=== PATIENT | male | born 1955 | race Caucasian/White ===

== ENCOUNTER 2020-03-19 15:23 | Outpatient (RCR) | payer OTHER, SELFPAY ==
[2020-02-24 10:57] VITALS: BMI 35.5
[2020-02-24] MEDS: cefTRIAXone 2,000 MG in sodium chloride 0.9% (plus) 50 ML 100 MG IV (11:23)
[2020-02-24 11:40] VITALS: BP 123/73; PULSE 63; RESP 18; TEMP 36.6; O2SAT 96
[2020-02-24 12:10] LABS: Basophils # 0.1 10^3/uL (0.0-0.1); Basophils % 0.6 %; Eosinophils # 0.3 10^3/uL (0.0-0.8); Eosinophils % 3.1 %; Hematocrit 37.1 % (42.0-52.0); Hemoglobin 12.2 g/dL (11.7-16.6); Lymphocytes # 2.1 10^3/uL (0.8-4.8); Lymphocytes % 25.1 %; Mean Corpuscular HGB Conc 32.9 g/dL (30.0-36.0); Mean Corpuscular Hemoglobin 31.2 pg (28.0-34.0); Mean Corpuscular Volume 94.9 fL (80-94); Monocytes # 0.5 10^3/uL (0.2-0.9); Monocytes % 5.7 %; Neutrophils # 5.24 10^3/uL (1.8-7.7); Neutrophils % 63.2 %; Nucleated Red Blood Cells % 0 %; Platelet Count 296 10^3/cmm (130-400); Red Blood Count 3.91 10^6/uL (4.1-5.3); Red Cell Distribution Width 13.1 % (12.1-15.1); White Blood Count 8.3 10^3/uL (4.0-10.0)
[2020-02-24 12:26] LABS: Alanine Aminotransferase 51 U/L (0-41); Albumin Level 3.8 g/dL (3.5-5.2); Alkaline Phosphatase 86 IU/L (40-130); Anion Gap 15.8 (5-19); Aspartate Amino Transferase 31 U/L (0-40); Blood Urea Nitrogen 23 mg/dL (8-23); Carbon Dioxide 24 mmol/L (22-29); Chloride 102 mmol/L (98-107); Globulin 2.7 g/dL (1.3-4.6); Glucose 133 mg/dL (65-115); Osmolality Calculated 292 mOsm/kg (285-295); Potassium 3.8 mmol/L (3.5-5.1); Sodium 138 mmol/L (136-145); Total Bilirubin 0.3 mg/dL (0.15-1.2); Total Protein 6.5 g/dL (6.6-8.7)
[2020-02-25 16:31] VITALS: BP 124/89; PULSE 78; RESP 18; TEMP 36.6; O2SAT 97
[2020-02-25] MEDS: cefTRIAXone 2,000 MG in sodium chloride 0.9% (plus) 50 ML 100 MG IV (16:33)
[2020-02-26] MEDS: cefTRIAXone 2,000 MG in sodium chloride 0.9% (plus) 50 ML 100 MG IV (16:20)
[2020-02-26 16:36] VITALS: BP 132/90; PULSE 71; RESP 18; TEMP 36.8; O2SAT 96
--- NOTE | 2020-02-26 16:37 | PC.NURSE ---
patient presented with PICC line dressing partially detached. It had been changed 02/22/20. This nurse changed dressing and end caps with infusion today due to compromised dressing.
[2020-02-27] MEDS: cefTRIAXone 2,000 MG in sodium chloride 0.9% (plus) 50 ML 100 MG IV (16:27)
[2020-02-27 16:44] VITALS: BP 124/78; PULSE 73; RESP 18; TEMP 36.6; O2SAT 96
[2020-02-28 16:24] VITALS: BP 120/78; PULSE 72; RESP 18; TEMP 36.6; O2SAT 98
[2020-02-28] MEDS: cefTRIAXone 2,000 MG in sodium chloride 0.9% (plus) 50 ML 100 MG IV (16:25)
[2020-02-29] MEDS: cefTRIAXone 2,000 MG in sodium chloride 0.9% (plus) 50 ML 100 MG IV (16:45)
[2020-02-29 17:08] VITALS: BP 126/86; PULSE 61; RESP 18; TEMP 36.6; O2SAT 97
[2020-03-02] MEDS: cefTRIAXone 2,000 MG in sodium chloride 0.9% (plus) 50 ML 50 MG IV (14:47)
[2020-03-02 14:49] VITALS: BP 120/77; PULSE 85; RESP 18; TEMP 36.8; O2SAT 98
[2020-03-03] MEDS: cefTRIAXone 2,000 MG in sodium chloride 0.9% (plus) 50 ML 100 MG IV (16:25)
[2020-03-03 16:46] LABS: Basophils % 0.7 %; Eosinophils # 0.2 10^3/uL (0.0-0.8); Eosinophils % 3.6 %; Hematocrit 36.8 % (42.0-52.0); Hemoglobin 12.5 g/dL (11.7-16.6); Lymphocytes # 1.9 10^3/uL (0.8-4.8); Lymphocytes % 32.1 %; Mean Corpuscular Hemoglobin 31.3 pg (28.0-34.0); Mean Platelet Volume 9.6 fL (7.4-10.4); Monocytes # 0.5 10^3/uL (0.2-0.9); Neutrophils # 3.25 10^3/uL (1.8-7.7); Neutrophils % 55.1 %; Nucleated Red Blood Cells % 0 %; Platelet Count 180 10^3/cmm (130-400); Red Cell Distribution Width 13.2 % (12.1-15.1); White Blood Count 5.9 10^3/uL (4.0-10.0)
[2020-03-03 17:01] VITALS: BP 132/90; PULSE 79; RESP 18; TEMP 36.8; O2SAT 95
[2020-03-03 17:24] LABS: Alanine Aminotransferase 39 U/L (0-41); Albumin Level 4.3 g/dL (3.5-5.2); Alkaline Phosphatase 113 IU/L (40-130); Anion Gap 16.9 (5-19); Aspartate Amino Transferase 24 U/L (0-40); Blood Urea Nitrogen 15 mg/dL (8-23); Calcium 9.7 mg/dL (8.5-10.5); Carbon Dioxide 21 mmol/L (22-29); Chloride 105 mmol/L (98-107); Globulin 2.7 g/dL (1.3-4.6); Glomerular Filtration Rate 97.3 mL/min (90-130); Glucose 96 mg/dL (65-115); Osmolality Calculated 289 mOsm/kg (285-295); Potassium 3.9 mmol/L (3.5-5.1); Sodium 139 mmol/L (136-145); Total Bilirubin 0.3 mg/dL (0.15-1.2)
[2020-03-04] MEDS: cefTRIAXone 2,000 MG in sodium chloride 0.9% (plus) 50 ML 100 MG IV (16:18)
[2020-03-04 16:33] VITALS: BP 120/76; PULSE 81; RESP 18; TEMP 36.7; O2SAT 96
[2020-03-05] MEDS: cefTRIAXone 2,000 MG in sodium chloride 0.9% (plus) 50 ML 100 MG IV (16:20)
[2020-03-05 17:12] VITALS: BP 117/87; PULSE 78; RESP 18; TEMP 36.5; O2SAT 97
[2020-03-06] MEDS: cefTRIAXone 2,000 MG in sodium chloride 0.9% (plus) 50 ML 100 MG IV (16:25)
[2020-03-06 16:45] VITALS: BP 137/85; PULSE 81; RESP 20; TEMP 36.7; O2SAT 97
[2020-03-07] MEDS: cefTRIAXone 2,000 MG in sodium chloride 0.9% (plus) 50 ML 100 MG IV (16:17)
[2020-03-07 16:27] VITALS: BP 112/82; PULSE 73; RESP 18; TEMP 36.3; O2SAT 98
[2020-03-08] MEDS: cefTRIAXone 2,000 MG in sodium chloride 0.9% (plus) 50 ML 100 MG IV (16:20)
[2020-03-08 16:25] VITALS: BP 126/88; PULSE 76; RESP 18; TEMP 36.3; O2SAT 95
[2020-03-09] MEDS: cefTRIAXone 2,000 MG in sodium chloride 0.9% (plus) 50 ML 100 MG IV (16:20)
[2020-03-09 16:23] VITALS: BP 142/103; PULSE 85; RESP 18; TEMP 36.5; O2SAT 97
[2020-03-10 16:33] VITALS: BP 125/88; PULSE 75; RESP 18; TEMP 36.5; O2SAT 97
--- NOTE | 2020-03-11 12:24 | XR_ITS ---
NOTE: Report was unsigned for reason: Order was edited. Original Signature date and time was: 03/11/20 1252 WS: [id number] Portable AP upright chest, 03/11/2020 Clinical Data: PICC line placement Comparison: None. Findings: The left PICC line and ends in the superior vena cava. No nodules, masses or effusions are seen. The heart is enlarged. The aortic arch and descending aorta show tortuosity The pulmonary vascularity is not increased. No pneumonia or pneumothorax is seen. There is an orthopedic anchor in the left humeral head. [facility] XR/XR chest 1V portable [id number] Impression: 1. Satisfactory position left PICC line. 2. Cardiomegaly and atherosclerosis.
[2020-03-11 13:08] LABS: Basophils # 0.1 10^3/uL (0.0-0.1); Basophils % 1.4 %; Eosinophils # 0.4 10^3/uL (0.0-0.8); Eosinophils % 8.8 %; Hematocrit 37.4 % (42.0-52.0); Hemoglobin 12.5 g/dL (11.7-16.6); Lymphocytes # 1.4 10^3/uL (0.8-4.8); Lymphocytes % 34.4 %; Mean Corpuscular HGB Conc 33.4 g/dL (30.0-36.0); Mean Corpuscular Hemoglobin 30.8 pg (28.0-34.0); Mean Corpuscular Volume 92.1 fL (80-94); Mean Platelet Volume 9.6 fL (7.4-10.4); Monocytes # 0.4 10^3/uL (0.2-0.9); Monocytes % 8.4 %; Neutrophils # 1.95 10^3/uL (1.8-7.7); Neutrophils % 46.5 %; Nucleated Red Blood Cells % 0 %; Platelet Count 153 10^3/cmm (130-400); Red Blood Count 4.06 10^6/uL (4.1-5.3); Red Cell Distribution Width 13.6 % (12.1-15.1); White Blood Count 4.2 10^3/uL (4.0-10.0)
[2020-03-11] MEDS: cefTRIAXone 2,000 MG in sodium chloride 0.9% (plus) 50 ML 100 MG IV (13:17)
[2020-03-11 13:32] LABS: Alanine Aminotransferase 32 U/L (0-41); Albumin Level 4.2 g/dL (3.5-5.2); Alkaline Phosphatase 142 IU/L (40-130); Anion Gap 14.1 (5-19); Aspartate Amino Transferase 23 U/L (0-40); Blood Urea Nitrogen 18 mg/dL (8-23); Calcium 9.3 mg/dL (8.5-10.5); Carbon Dioxide 24 mmol/L (22-29); Chloride 104 mmol/L (98-107); Globulin 2.6 g/dL (1.3-4.6); Glomerular Filtration Rate 97.3 mL/min (90-130); Glucose 87 mg/dL (65-115); Osmolality Calculated 287 mOsm/kg (285-295); Potassium 4.1 mmol/L (3.5-5.1); Sodium 138 mmol/L (136-145); Total Bilirubin 0.4 mg/dL (0.15-1.2); Total Protein 6.8 g/dL (6.6-8.7)
[2020-03-12 16:05] VITALS: BP 113/78; PULSE 78; RESP 18; TEMP 36.5; O2SAT 96
[2020-03-12] MEDS: cefTRIAXone 2,000 MG in sodium chloride 0.9% (plus) 50 ML 100 MG IV (16:15)
[2020-03-13 16:25] VITALS: BP 127/81; PULSE 76; RESP 18; TEMP 36.5; O2SAT 96
[2020-03-13] MEDS: cefTRIAXone 2,000 MG in sodium chloride 0.9% (plus) 50 ML 100 MG IV (16:25)
[2020-03-14] MEDS: cefTRIAXone 2,000 MG in sodium chloride 0.9% (plus) 50 ML 100 MG IV (16:26)
[2020-03-14 16:27] VITALS: BP 136/92; PULSE 85; RESP 18; TEMP 36.7; O2SAT 96
[2020-03-15] MEDS: cefTRIAXone 2,000 MG in sodium chloride 0.9% (plus) 50 ML 100 MG IV (16:10)
[2020-03-15 16:43] VITALS: BP 130/82; PULSE 80; RESP 18; TEMP 36.6; O2SAT 98
[2020-03-16 16:20] VITALS: BP 110/75; PULSE 109; RESP 18; TEMP 36.5; O2SAT 96
[2020-03-16] MEDS: cefTRIAXone 2,000 MG in sodium chloride 0.9% (plus) 50 ML 100 MG IV (16:21)
[2020-03-17] MEDS: cefTRIAXone 2,000 MG in sodium chloride 0.9% (plus) 50 ML 100 MG IV (16:25)
[2020-03-17 16:44] VITALS: BP 111/84; PULSE 78; RESP 18; TEMP 36.6; O2SAT 98
[2020-03-19] MEDS: cefTRIAXone 2,000 MG in sodium chloride 0.9% (plus) 50 ML 100 MG IV (16:00)
[2020-03-19 16:30] LABS: Basophils # 0.1 10^3/uL (0.0-0.1); Basophils % 1.1 %; Eosinophils # 0.4 10^3/uL (0.0-0.8); Eosinophils % 8.1 %; Hematocrit 38.6 % (42.0-52.0); Lymphocytes # 1.5 10^3/uL (0.8-4.8); Lymphocytes % 34.3 %; Mean Corpuscular HGB Conc 33.7 g/dL (30.0-36.0); Mean Corpuscular Hemoglobin 30.7 pg (28.0-34.0); Mean Corpuscular Volume 91.3 fL (80-94); Mean Platelet Volume 9.6 fL (7.4-10.4); Monocytes # 0.3 10^3/uL (0.2-0.9); Monocytes % 5.6 %; Neutrophils # 2.26 10^3/uL (1.8-7.7); Neutrophils % 50.7 %; Nucleated Red Blood Cells % 0 %; Platelet Count 182 10^3/cmm (130-400); Red Blood Count 4.23 10^6/uL (4.1-5.3); Red Cell Distribution Width 13.6 % (12.1-15.1); White Blood Count 4.5 10^3/uL (4.0-10.0)
[2020-03-19 16:43] VITALS: BP 102/72; PULSE 87; RESP 18; TEMP 36.6; O2SAT 96
[2020-03-19 16:48] LABS: Alanine Aminotransferase 35 U/L (0-41); Albumin Level 4.3 g/dL (3.5-5.2); Alkaline Phosphatase 145 IU/L (40-130); Anion Gap 15.5 (5-19); Aspartate Amino Transferase 22 U/L (0-40); Blood Urea Nitrogen 20 mg/dL (8-23); C Reactive Protein 4.6 mg/L (0.0-4.9); Calcium 9.5 mg/dL (8.5-10.5); Carbon Dioxide 22 mmol/L (22-29); Chloride 103 mmol/L (98-107); Globulin 2.8 g/dL (1.3-4.6); Glomerular Filtration Rate 97.3 mL/min (90-130); Glucose 121 mg/dL (65-115); Osmolality Calculated 288 mOsm/kg (285-295); Potassium 3.5 mmol/L (3.5-5.1); Sodium 137 mmol/L (136-145); Total Bilirubin 0.2 mg/dL (0.15-1.2); Total Protein 7.1 g/dL (6.6-8.7)
[2020-03-20 16:43] VITALS: BP 146/87; PULSE 78; RESP 18; TEMP 37; O2SAT 97
[2020-03-20] MEDS: cefTRIAXone 2,000 MG in sodium chloride 0.9% (plus) 50 ML 100 MG IV (16:43)
== END 2020-03-20 23:59 | disposition home or self-care (01) ==
LOC: OPS 15:23
PROVIDERS: PCP Family Medicine; Visit Provider Internal Medicine Infectious Disease
DX: T84.54XA Infection and inflammatory reaction due to internal left knee prosthesis, initial encounter (principal); Y83.8 Other surgical procedures as the cause of abnormal reaction of the patient, or of later complication, without mention of misadventure at the time of the procedure
CPT/HCPCS: 36415; 36569; 36592; 71045; 80053; 85025; 86140; 86141; 87070; 87075; 87205; 96365; J0696

== ENCOUNTER 2020-04-02 08:05 | Outpatient (RCR) | payer OTHER, SELFPAY ==
[2020-03-21] MEDS: cefTRIAXone 2,000 MG in sodium chloride 0.9% (plus) 50 ML 100 MG IV (16:10)
[2020-03-21 16:27] VITALS: BP 123/77; PULSE 69; RESP 18; TEMP 36.8; O2SAT 98; BMI 35.5
[2020-03-22 16:15] VITALS: BP 118/81; PULSE 75; RESP 18; TEMP 36.7; O2SAT 96
[2020-03-22] MEDS: cefTRIAXone 2,000 MG in sodium chloride 0.9% (plus) 50 ML 100 MG IV (16:20)
[2020-03-23] MEDS: cefTRIAXone 2,000 MG in sodium chloride 0.9% (plus) 50 ML 100 MG IV (16:15)
[2020-03-23 17:22] VITALS: BP 122/81; PULSE 84; RESP 18; TEMP 36.6; O2SAT 96
[2020-03-24] MEDS: cefTRIAXone 2,000 MG in sodium chloride 0.9% (plus) 50 ML 100 MG IV (16:04)
[2020-03-24 16:11] VITALS: BP 147/102; PULSE 85; RESP 18; TEMP 37.1; O2SAT 96
[2020-03-25] MEDS: cefTRIAXone 2,000 MG in sodium chloride 0.9% (plus) 50 ML 100 MG IV (16:07)
[2020-03-25 16:14] VITALS: BP 105/69; PULSE 74; RESP 18; TEMP 36.5; O2SAT 95
[2020-03-26 12:10] VITALS: BP 121/86; PULSE 71; RESP 18; TEMP 36.6; O2SAT 96
[2020-03-26] MEDS: cefTRIAXone 2,000 MG in sodium chloride 0.9% (plus) 50 ML 100 MG IV (12:10)
[2020-03-27] MEDS: cefTRIAXone 2,000 MG in sodium chloride 0.9% (plus) 50 ML 100 MG IV (08:17)
[2020-03-27 08:18] VITALS: BP 133/91; PULSE 55; RESP 18; TEMP 36.6; O2SAT 95
[2020-03-28] MEDS: cefTRIAXone 2,000 MG in sodium chloride 0.9% (plus) 50 ML 100 MG IV (08:12)
[2020-03-28 08:31] VITALS: BP 133/87; PULSE 64; RESP 18; TEMP 36.2; O2SAT 97
[2020-03-29] MEDS: cefTRIAXone 2,000 MG in sodium chloride 0.9% (plus) 50 ML 100 MG IV (08:15)
[2020-03-29 08:17] VITALS: BP 122/81; PULSE 66; RESP 18; TEMP 36.4; O2SAT 96
[2020-03-30 08:11] VITALS: BP 113/80; PULSE 63; RESP 18; TEMP 36.8; O2SAT 95
[2020-03-30] MEDS: cefTRIAXone 2,000 MG in sodium chloride 0.9% (plus) 50 ML 100 MG IV (08:11)
[2020-03-31] MEDS: cefTRIAXone 2,000 MG in sodium chloride 0.9% (plus) 50 ML 100 MG IV (08:15)
[2020-03-31 08:20] VITALS: BP 123/80; PULSE 67; RESP 18; TEMP 36.6; O2SAT 97
[2020-03-31 08:35] LABS: Basophils % 1.1 %; Eosinophils # 0.2 10^3/uL (0.0-0.8); Eosinophils % 4.5 %; Hematocrit 39.9 % (42.0-52.0); Hemoglobin 13.3 g/dL (11.7-16.6); Lymphocytes # 1.2 10^3/uL (0.8-4.8); Lymphocytes % 31.6 %; Mean Corpuscular HGB Conc 33.3 g/dL (30.0-36.0); Mean Corpuscular Hemoglobin 30.6 pg (28.0-34.0); Mean Corpuscular Volume 91.7 fL (80-94); Mean Platelet Volume 9.3 fL (7.4-10.4); Monocytes # 0.4 10^3/uL (0.2-0.9); Monocytes % 9.8 %; Neutrophils # 1.97 10^3/uL (1.8-7.7); Neutrophils % 52.5 %; Nucleated Red Blood Cells % 0 %; Platelet Count 173 10^3/cmm (130-400); Red Blood Count 4.35 10^6/uL (4.1-5.3); Red Cell Distribution Width 13.6 % (12.1-15.1); White Blood Count 3.8 10^3/uL (4.0-10.0)
[2020-03-31 08:55] LABS: Alanine Aminotransferase 41 U/L (0-41); Albumin Level 4.2 g/dL (3.5-5.2); Alkaline Phosphatase 129 IU/L (40-130); Anion Gap 15.6 (5-19); Aspartate Amino Transferase 27 U/L (0-40); Blood Urea Nitrogen 15 mg/dL (8-23); C Reactive Protein 2.6 mg/L (0.0-4.9); Calcium 8.9 mg/dL (8.5-10.5); Carbon Dioxide 22 mmol/L (22-29); Chloride 108 mmol/L (98-107); Globulin 2.4 g/dL (1.3-4.6); Glomerular Filtration Rate 97.3 mL/min (90-130); Glucose 138 mg/dL (65-115); Osmolality Calculated 297 mOsm/kg (285-295); Potassium 3.6 mmol/L (3.5-5.1); Sodium 142 mmol/L (136-145); Total Bilirubin 0.2 mg/dL (0.15-1.2); Total Protein 6.6 g/dL (6.6-8.7)
[2020-04-01 08:08] VITALS: BP 117/91; PULSE 68; RESP 18; TEMP 36.1; O2SAT 94
[2020-04-01] MEDS: cefTRIAXone 2,000 MG in sodium chloride 0.9% (plus) 50 ML 100 MG IV (08:08)
[2020-04-02] MEDS: cefTRIAXone 2,000 MG in sodium chloride 0.9% (plus) 50 ML 100 MG IV (08:21)
[2020-04-02 08:22] VITALS: BP 128/97; PULSE 65; RESP 18; TEMP 36.7; O2SAT 98
[2020-04-03] MEDS: cefTRIAXone 2,000 MG in sodium chloride 0.9% (plus) 50 ML 100 MG IV (08:00)
[2020-04-03 08:58] VITALS: BP 131/90; PULSE 65; RESP 18; TEMP 36.1; O2SAT 97
== END 2020-04-19 23:59 | disposition home or self-care (01) ==
LOC: OPS 08:05
PROVIDERS: PCP Family Medicine; Visit Provider Internal Medicine Infectious Disease
DX: T84.54XA Infection and inflammatory reaction due to internal left knee prosthesis, initial encounter (principal); Y83.8 Other surgical procedures as the cause of abnormal reaction of the patient, or of later complication, without mention of misadventure at the time of the procedure
CPT/HCPCS: 15852; 36415; 80053; 85025; 86140; 96365; J0696

== ENCOUNTER → 2022-09-19 17:11 | Outpatient (BNVA) | payer MEDICARE, SELFPAY | PROVIDERS: PCP Family Medicine; Visit Provider Nurse Practitioner Family | DX: Z12.5 Encounter for screening for malignant neoplasm of prostate (principal); I10 Essential (primary) hypertension | CPT/HCPCS: 80053; 80061; 85025; G0103 ==

== ENCOUNTER → 2023-12-17 09:20 | Outpatient (BNVA) | payer MEDICARE, SELFPAY | PROVIDERS: PCP Family Medicine; Visit Provider Nurse Practitioner Family | DX: I10 Essential (primary) hypertension (principal); Z96.659 Presence of unspecified artificial knee joint; E78.00 Pure hypercholesterolemia, unspecified | CPT/HCPCS: 80053; 80061 ==